=== PATIENT | male | born 1950 | race Caucasian/White ===

== ENCOUNTER 2018-04-11 15:55 | Emergency (ER) | payer OTHER ==
[2018-04-11 16:15] LABS: ADD MAN DIFF? NO
[2018-04-11 16:20] LABS: BASOPHIL # 0.1 10^3/ul (0.0-0.1); BASOPHILS % 0.5 % (0.0-2.0); EOSINOPHILS # 0.3 10^3/ul (0.0-0.5); EOSINOPHILS % 2.9 % (0.0-7.0); HEMATOCRIT 40.5 % (42.0-52.0); HEMOGLOBIN 12.9 g/dl (14.0-18.0); LYMPHOCYTES # 1.9 10^3/ul (0.8-2.9); LYMPHOCYTES % 19.3 % (15.0-51.0); MEAN CORPUSCULAR HEMOGLOBIN 20.2 pg (29.0-33.0); MEAN CORPUSCULAR HGB CONC 31.9 g/dl (32.0-37.0); MEAN CORPUSCULAR VOLUME 63.5 fl (82.0-101.0); MEAN PLATELET VOLUME 10.3 fl (7.4-10.4); MONOCYTE # 0.7 10^3/ul (0.3-0.9); MONOCYTES % 7.4 % (0.0-11.0); NEUTROPHILS % 69.3 % (39.0-77.0); PLATELET COUNT 263 10^3/UL (140-415); RED BLOOD COUNT 6.38 10^6/ul (4.70-6.10); RED CELL DISTRIBUTION WIDTH 17.7 % (11.5-14.5)
[2018-04-11 16:20] LABS: WHITE BLOOD COUNT 10.1 10^3/ul (4.8-10.8)
[2018-04-11 16:44] LABS: ANION GAP 11 (5-13); BLOOD UREA NITROGEN 16 mg/dl (7-20); CALCIUM 10.1 mg/dl (8.4-10.2); CARBON DIOXIDE 21 mmol/L (21-31); CHLORIDE 106 mmol/L (97-110); CREATININE 1.16 mg/dl (0.61-1.24); Estimated GFR > 60 mL/min (>60); GLUCOSE 107 mg/dl (70-220); POTASSIUM 3.8 mmol/L (3.5-5.1); SODIUM 138 mmol/L (135-144)
[2018-04-11 16:55] LABS: TROPONIN-I < 0.012 ng/ml (0.000-0.120)
[2018-04-11] MEDS: NITROGLYCERIN 2% 1 GM OINT PKT TD (17:03)
[2018-04-11] MEDS: ASPIRIN 81 MG TAB PO (17:03)
== END 2018-04-11 18:19 | disposition home or self-care (01) ==
LOC: E/R 15:55
DX: D64.9 Anemia, unspecified (principal); R40.2142 Coma scale, eyes open, spontaneous, at arrival to emergency department; R40.2252 Coma scale, best verbal response, oriented, at arrival to emergency department; R40.2362 Coma scale, best motor response, obeys commands, at arrival to emergency department; I10 Essential (primary) hypertension; I25.10 Atherosclerotic heart disease of native coronary artery without angina pectoris; J44.9 Chronic obstructive pulmonary disease, unspecified; Z98.61 Coronary angioplasty status; Z79.82 Long term (current) use of aspirin; Z79.01 Long term (current) use of anticoagulants
CPT/HCPCS: 71045; 80048; 84484; 85025; 93005; 99285-25